=== PATIENT | female | born 1955 | race Asian ===

== ENCOUNTER 2017-05-03 05:56 | Inpatient (IN) | payer BC ==
--- NOTE | 2017-04-30 11:40 | HP ---
Admitting History and Physical - Primary Care Physician PCP: Ron Mckeon - Admission Chief Complaint: left breast cancer History of Present Illness: Patient is a 61 yo female s/p neoadjuvant chemo for a left invasive ductal ca ( 10/2016) ER and HI positive, Her 2 negative and positive axillary lymph node. 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 Patient is now presenting for a left MRM with reconstruction. History Source: Patient Limitations to Obtaining History: No Limitations - Past Medical History Cardiovascular: Yes: HTN Endocrine: Yes: Diabetes Mellitus - Smoking History Smoking history: Never smoked Have you smoked in the past 12 months: No - Alcohol/Substance Use Hx Alcohol Use: No Home Medications - Allergies Allergies/Adverse Reactions: Allergies Allergy/AdvReac Type Severity Reaction Status Date / Time No Known Allergies Allergy Unverified 08/19/13 11:37 - Home Medications Home Medications: Ambulatory Orders Aspirin [Aspir-Low] 81 mg PO DAILY 08/19/13 Calcium (Oyster Shell) [Elemental Calcium [Nf]] 600 mg PO BID tablet 08/19/13 Multivitamin [Multivitamins] 1 each PO DAILY tablet 08/19/13 Family Disease History - Family Disease History Family Disease History: CA: Brother (liver cancer was ETOH related) Other Family History: maternal cousin-ovarian cancer Review of Systems - Review of Systems Cardiovascular: reports: No Symptoms Respiratory: reports: No Symptoms Physical Examination Constitutional: Yes: Well Nourished, Calm Breast(s): Yes: Other (Patient has a B-cup breast without skin changes or nipple discharge. Left breast mass is softer after chemo and area of thickening at 12 oclock is still present. No palpable adenopathy is noted.) Assessment/Plan Assessment Left breast cancer with mets to axillary lymph nodes. Plan Left MRM with reconstruction
[2017-04-30 15:06] VITALS: BMI 25.7
[2017-05-03] MEDS ORDERED: DEXAMETHASONE SOD PHOSPHATE/PF 10 MG/ML SDV ONE (06:47)
[2017-05-03] MEDS ORDERED: MIDAZOLAM HCL 2 MG/2 ML SINGLE DOSE VIAL ONE ×3 (06:47→07:32)
[2017-05-03] MEDS ORDERED: BUPIVACAINE HCL/PF (5 MG/ML) 30 ML VIAL IJ ONE (06:47)
[2017-05-03] MEDS ORDERED: ceFAZolin SODIUM 1 GM VIAL ONE ×2 (07:14→08:30)
[2017-05-03] MEDS ORDERED: GENTAMICIN SO4 80 MG/2 ML VIAL ONE (07:15)
[2017-05-03] MEDS ORDERED: SUCCINYLCHOLINE CHLORIDE 200 MG/10 ML VIAL ONE (07:32)
[2017-05-03] MEDS ORDERED: ROCURONIUM BROMIDE 50 MG/5 ML VIAL ONE (07:32)
[2017-05-03] MEDS ORDERED: PROPOFOL 20 ML ONE ×2 (07:32)
[2017-05-03] MEDS ORDERED: LIDOCAINE HCL/PF 2% SDV 5ML VIAL ONE (07:34)
[2017-05-03] MEDS ORDERED: ONDANSETRON 4 MG/2 ML VIAL ONE (07:35)
[2017-05-03] MEDS ORDERED: DEXAMETHASONE SOD PHOSPHATE 4 MG/1 ML VIAL ONE (07:35)
[2017-05-03] MEDS ORDERED: ONDANSETRON 4 MG/2 ML VIAL IVPUSH PRN (10:05)
[2017-05-03] MEDS ORDERED: ONDANSETRON 4 MG/2 ML VIAL IVPB PRN (10:05)
[2017-05-03] MEDS ORDERED: ZOLPIDEM TARTRATE 5 MG TABLET PO PRN (10:05)
[2017-05-03] MEDS ORDERED: ACETAMINOPHEN 325 MG TABLET (FP) PO PRN (10:05)
[2017-05-03] MEDS ORDERED: oxyCODONE HCL 5 MG TABLET PO PRN ×2 (10:07→10:08)
[2017-05-03] MEDS ORDERED: DEXTROSE 5%-0.45% SALINE 1,000 ML IV SCH (10:15)
[2017-05-03] MEDS ORDERED: LACTATED RINGERS SOLUTION 1,000 ML IV SCH ×2 (10:15→11:15)
[2017-05-03] MEDS ORDERED: NEOSTIGMINE METHYLSULFATE 0.5 MG/ML - 10 ML MDV ONE (10:33)
[2017-05-03] MEDS ORDERED: GLYCOPYRROLATE 0.2 MG/1 ML VIAL ONE (10:33)
[2017-05-03] MEDS ORDERED: KETOROLAC TROMETHAMINE 30 MG/1 ML VIAL ONE (10:34)
--- NOTE | 2017-05-03 11:03 | OP ---
DATE OF OPERATION: 05/03/2017 PREOPERATIVE DIAGNOSIS: Left breast cancer, overlapping regions, with positive axillary lymph nodes. POSTOPERATIVE DIAGNOSIS: Left breast cancer, overlapping regions, with positive axillary lymph nodes. PROCEDURE PERFORMED: Left breast modified radical mastectomy with baker apprentice reconstruction and AlloDerm. PRIMARY SURGEON: Jona Arteaga MD POWER SYSTEMS ENGINEER: MICHEAL Miranda Primary surgeon for the baker apprentice reconstruction with AlloDerm is Dr. Jona Menendez, with his elementary assistant principal MICHEAL Sellers. ANESTHESIA: General endotracheal anesthesia. COMPLICATIONS: There were no complications. INDICATIONS: Briefly, the patient is a 61-year-old , postmenopausal female of [place] descent. No family history of breast cancer, but has a maternal cousin who had ovarian cancer in her 40s. The patient noticed a left breast mass and underwent mammography and ultrasound in October 2016, showing a 5.3-cm mass in the left breast on mammography, measuring about 4.8 cm on ultrasound. She had left axillary adenopathy and underwent biopsies of the lymph node as well as the breast mass, which came back positive for cancer. This was an infiltrating ductal cancer, ER-NC positive, HER-II/ROXANA negative, with a high Ki-67. MRI showed about a 6.1-cm mass in the left breast with the obviously positive lymph nodes. She underwent neoadjuvant chemotherapy and had a repeat MRI showing some decrease in the size of the cancer, but still with noticeable adenopathy. The patient was advised to undergo a modified radical mastectomy and was seen by Plastic Surgery preoperatively. She opted to undergo an baker apprentice reconstruction, since she will need post-mastectomy radiation. DESCRIPTION OF PROCEDURE: The patient was brought in for the procedure on May 03, 2017. She was marked preoperatively by the plastic surgeon, signed informed consents, and site verification was made. She was brought into the operating room and laid on the OR table in the supine position. Venodynes were placed on the lower extremities. She received 1 g of Ancef prior to incision. Both breasts were sterilely prepped and draped in the usual fashion. A skin-sparing elliptical incision was made, encompassing the nipple-areolar complex. Skin flaps were raised superiorly to the level of the clavicle, medially to the level of the sternum, laterally to the level of the latissimus, and inferiorly below the level of the inframammary fold. The breast was taken off of the pectoralis major muscle from medial to lateral. The axillary dissection was kept on block with the mastectomy specimen. Level I and level II axillary lymph node dissection was undertaken, using the axillary vein as the superior border of the dissection, the latissimus as the lateral border, the pectoralis minor as the medial border. All the lymph nodes were completely cleared from this triangle, sparing the long thoracic and thoracodorsal nerves, which were identified and spared throughout their entire courses. The intercostal brachial nerve was sacrificed. The specimen was then x-rayed in Radiology and showed removal of the 2 clips in question. It was oriented with a long lateral and short superior suture, and placed in formalin, to be sent to Pathology. Some high level II lymph nodes were taken and sent separately as "left axillary high level II lymph nodes." A separate anterior margin was also taken with a suture marking the biopsy cavity side. It should be noted that a small amount of muscle was removed on the posterior end of the mastectomy, where it was felt that the cancer may be penetrating through the muscle. Hemostasis was achieved and the wound was copiously irrigated. At this point Dr. Menendez became the primary surgeon to perform the baker apprentice with AlloDerm. Estimated blood loss at this point in the case was about 50 mL. She was hemodynamically stable throughout. The patient will have drains placed by Plastic Surgery at the time of the baker apprentice reconstruction. She did have a pectoral nerve block prior to going to the operating room, for postoperative pain control, but will also have a ED TECH for postoperative pain control. She will be recovered and admitted postoperatively for pain management and wound management. JONA ARTEAGA M.D. [id number]
[2017-05-03] MEDS ORDERED: diazePAM 2 MG TABLET PO PRN (11:09)
[2017-05-03] MEDS ORDERED: ACETAMINOPHEN 1000 MG/100 ML VIAL (NON FORMULARY) IVPB ONE (11:09)
[2017-05-03] MEDS ORDERED: traMADol HCL 50 MG TABLET PO PRN (11:09)
[2017-05-03] MEDS ORDERED: traMADol HCL 50 MG TABLET PO ONE (12:03)
[2017-05-03] MEDS ORDERED: ACETAMINOPHEN 650 MG/20.3 ML ORAL SOLUTION (CUPS) PO ONE (12:03)
--- NOTE | 2017-05-03 13:32 | OP ---
DATE OF OPERATION: 05/03/2017 SURGEON: Jona Menendez MD [employer] MANAGER: Verito Pastor PA-C PREOPERATIVE DIAGNOSIS: Left chest wall deformity status post left modified radical mastectomy. POSTOPERATIVE DIAGNOSIS: Left chest wall deformity status post left modified radical mastectomy. OPERATIVE PROCEDURE: 1. Immediate left breast reconstruction utilizing immediate insertion of tissue school adjustment counselor. 2. Insertion of acellular dermal matrix AlloDerm for breast reconstruction. 3. SPY intraoperative angiogram x2. OPERATIVE INDICATION: Patient is a young woman who was brought to the operating room by Dr. Jona Mckeon for left breast mastectomy for cancer. The patient had just finished her neoadjuvant chemotherapy and is now ready for mastectomy. The risks and benefits of surgical versus nonsurgical alternatives, as well as the material complications of the procedure, were described to the patient on multiple occasions preoperatively. She agreed to the planned procedure. The patient was marked in the standing position preoperatively in the holding area with Dr. Mckeon for outline of the procedure and scar deformity. All questions were asked and answered. OPERATIVE PROCEDURE IN DETAIL: Patient was taken to the operating room and after induction of general anesthesia in the supine position, both arms were extended and padded. Venodyne boots were placed, and attention was turned to the left chest wall. The markings for the mastectomy in modified radical fashion were outlined again with Dr. Mckeon, and then, he performed the mastectomy which will be dictated under a separate cover. Upon completion of the mastectomy of the left breast, the SPY intraoperative angiogram was brought into the field, and an intraoperative SPY angiogram was performed on the left chest wall. Blood flow to the majority of the flaps was good. The skin edges were trimmed in the usual fashion. Attention was then turned to the retropectoral area. The pectoralis major muscle was elevated superiorly from the second rib, medially to the sternal fibers, and down to the inframammary fold, elevating the origin of the pectoralis major muscle along the medial border of the breast. After elevation, hemostasis was meticulously obtained throughout the pocket including the axilla which contained a complete axillary dissection. At this point, a tissue school adjustment counselor of Allergan style 133MV 400 mL was prepared on the back table in the usual fashion and brought into the field. This was placed into the retropectoral position, and a Contour AlloDerm perforated, medium size was placed over the lower pole of the breast. This was sutured into position using 3-0 Vicryl sutures in interrupted tacking fashion along the pectoralis border and down to the inframammary fold. When the entire tissue school adjustment counselor was covered, it was filled through a sterile closed system, injecting 180 mL of sterile saline into the tissue school adjustment counselor. At this point, copious irrigation again was performed. Two 15 John drains were brought out through separate stab wounds laterally, and then, the skin and subcutaneous tissue were advanced and closed upon itself. Good shape and contour were seen. The skin flaps appeared viable on SPY intraoperative angiogram, and the breast was dressed with Steri-Strips and a compressive dressing and a Surgi-Bra. She tolerated the procedure well. JONA MENENDEZ M.D. [id number]
[2017-05-03] MEDS: metFORMIN HCL 500 MG TABLET (FP) PO SCH (16:18)
[2017-05-03] MEDS: CEFAZOLIN 1 GM/D5W 50 ML IVPB SCH ×2 (16:18→21:44)
[2017-05-03] MEDS: diazePAM 2 MG TABLET PO SCH ×2 (16:18→16:32)
[2017-05-03] MEDS: INSULIN DETEMIR 100 UNITS/ML MDV SQ SCH (22:30)
[2017-05-04] MEDS: ACETAMINOPHEN 325 MG TABLET (FP) PO SCH ×5 (01:46→23:22)
[2017-05-04] MEDS: traMADol HCL 50 MG TABLET PO SCH ×4 (01:47→23:22)
[2017-05-04] MEDS: diazePAM 2 MG TABLET PO SCH ×4 (01:48→23:55)
[2017-05-04] MEDS: CEFAZOLIN 1 GM/D5W 50 ML IVPB SCH ×4 (02:33→20:45)
[2017-05-04] MEDS: INSULIN REGULAR HUMAN 100 UNITS/ML *VIAL SQ SCH (06:41)
[2017-05-04] MEDS: metFORMIN HCL 500 MG TABLET (FP) PO SCH ×2 (06:41→17:13)
[2017-05-04 08:15] LABS: MCH 27.8 pg (25.7-33.7); MCHC 32.5 g/dl (32.0-36.0); MEAN CELL VOLUME 85.4 fl (80-96); MEAN PLT VOLUME 7.9 fl (7.5-11.1); PLATELET COUNT 258 K/MM3 (134-434); RDW 13.3 % (11.6-15.6); WHITE BLOOD COUNT 13.7 K/mm3 (4.0-10.8)
--- NOTE | 2017-05-04 09:13 | PN ---
Progress Note (short form) - Note Progress Note: Anesthesia postop note. S/P left breast radical mastectomy and reconstruction. Pat seen and examined. VSS. pain well controlled. Pat had some sore throat yesterday post op, improved today. Pat expressed concern and unsatisfied with not being aware of the plan of care in the preop stage. I addressed her questions and concerns , patient was reassured and satisfied. Ms Moya PA was present in the room.
--- NOTE | 2017-05-04 09:25 | PN ---
Progress Note, Physician Chief Complaint: Left breast cancer S/P left modified radical mastectomy with rn advanced and alloderm History of Present Illness: patient is eating , pain controlled with Ultram and tylenol, OOB to bathroom - Current Medication List Current Medications: Active Medications Acetaminophen (Tylenol -) 650 mg PO Q6H [facility] Last Admin: 05/04/17 06:35 Dose: Not Given Acetaminophen (Tylenol -) 650 mg PO Q4H PRN PRN Reason: FEVER Amlodipine Besylate (Norvasc -) 5 mg PO DAILY [facility] Diazepam (Valium -) 2 mg PO Q8H [facility] Last Admin: 05/04/17 01:48 Dose: Not Given Fentanyl (Sublimaze Injection -) 50 mcg IVPUSH [id number] PRN PRN Reason: PAIN Stop: 05/06/17 10:06 Heparin Sodium (Porcine) (Heparin -) 5,000 unit SQ BID [facility] Cefazolin Sodium (Ancef 1 Gm Premixed Ivpb -) 50 mls @ 100 mls/hr IVPB Q6H-IV [facility] Stop: 05/10/17 15:44 Last Admin: 05/04/17 02:33 Dose: 100 mls/hr Dextrose/Sodium Chloride (D5-1/2ns -) 1,000 mls @ 100 mls/hr IV ASDIR [facility] Insulin Detemir (Levemir Vial) 10 units SQ HS [facility] Last Admin: 05/03/17 22:30 Dose: 10 units Insulin Human Regular (Novolin R Vial *For Ivpush Or Iv Drip Only*) 8 units SQ AM [facility] Last Admin: 05/04/17 06:41 Dose: 8 units Losartan Potassium (Cozaar -) 100 mg PO DAILY [facility] Metformin HCl (Glucophage -) 1,000 mg PO BIDI [facility] Last Admin: 05/04/17 06:41 Dose: 1,000 mg Ondansetron HCl (Zofran Injection) 4 mg IVPB Q6H PRN PRN Reason: NAUSEA AND/OR VOMITING Oxycodone HCl (Roxicodone -) 5 mg PO Q4H PRN PRN Reason: PAIN Oxycodone HCl (Roxicodone -) 10 mg PO Q4H PRN PRN Reason: PAIN Tramadol HCl (Ultram -) 50 mg PO Q6H [facility] Last Admin: 06/30/17 06:35 Dose: Not Given Zolpidem Tartrate (Ambien -) 5 mg PO HS PRN PRN Reason: Insomnia - Objective Vital Signs: Vital Signs Temperature 98.1 F 05/04/17 06:00 Pulse Rate 82 05/04/17 06:00 Respiratory Rate 18 05/04/17 09:00 Blood Pressure 121/58 05/04/17 06:00 O2 Sat by Pulse Oximetry (%) 100 05/04/17 09:00 Constitutional: Yes: Well Nourished, No Distress Breast(s): Yes: Other (Left flap viable no echymosis incision intact steristrips in place patito drains funtioning) Labs: CBC, BMP 05/04/17 07:30 Problem List - Problems (1) Breast cancer, left Code(s): C50.912 - MALIGNANT NEOPLASM OF UNSPECIFIED SITE OF LEFT FEMALE BREAST Qualifiers: Breast location: unspecified site of breast Patient sex: female Assessment/Plan continue IV antibiotics continue pain medication OOB spirometry SCD prepare for discharge tomorrow
[2017-05-04] MEDS: HEPARIN NA (PORCINE) 5,000 UNITS/ML 1ML VIAL SQ SCH ×2 (09:58→21:22)
[2017-05-04] MEDS: amLODIPine BESYLATE 5 MG TABLET (FP) PO SCH (09:58)
[2017-05-04] MEDS: LOSARTAN POTASSIUM 50 MG TABLET (FP) PO SCH (09:58)
[2017-05-04] MEDS: INSULIN DETEMIR 100 UNITS/ML MDV SQ SCH (21:30)
[2017-05-05] MEDS: CEFAZOLIN 1 GM/D5W 50 ML IVPB SCH ×2 (03:24→09:31)
[2017-05-05 06:30] VITALS: BP 133/73; PULSE 72; TEMP 98.6
[2017-05-05] MEDS ORDERED: INSULIN (NOVOLOG) ASPART 100 UNITS/ML 10ML VIAL ONE (06:44)
[2017-05-05] MEDS: ACETAMINOPHEN 325 MG TABLET (FP) PO SCH (06:50)
[2017-05-05] MEDS: traMADol HCL 50 MG TABLET PO SCH (06:51)
[2017-05-05] MEDS: metFORMIN HCL 500 MG TABLET (FP) PO SCH (06:51)
[2017-05-05] MEDS: INSULIN REGULAR HUMAN 100 UNITS/ML *VIAL SQ SCH (06:51)
[2017-05-05] MEDS: diazePAM 2 MG TABLET PO SCH (08:45)
[2017-05-05] MEDS: HEPARIN NA (PORCINE) 5,000 UNITS/ML 1ML VIAL SQ SCH (09:58)
[2017-05-05] MEDS: LOSARTAN POTASSIUM 50 MG TABLET (FP) PO SCH (09:58)
[2017-05-05] MEDS: amLODIPine BESYLATE 5 MG TABLET (FP) PO SCH (09:58)
--- NOTE | 2017-05-05 10:49 | DS ---
Physical Examination Vital Signs: Vital Signs Temperature 98.6 F 05/05/17 06:00 Pulse Rate 72 05/05/17 06:00 Respiratory Rate 18 05/05/17 06:00 Blood Pressure 133/73 05/05/17 06:00 O2 Sat by Pulse Oximetry (%) 98 05/05/17 06:00 Constitutional: Yes: Well Nourished, No Distress Wound/Incision: Yes: Dressing Dry and Intact (Left chest incision covered with steri strips. Skin flaps viable and warm. JPs functioning, serosanguineous effluent.) Labs: CBC, BMP 05/04/17 07:30 Discharge Summary Reason For Visit: LEFT BREAST CA Current Active Problems Breast cancer, left (Acute) Condition: Good - Instructions Diet, Activity, Other Instructions: Post Operative Instructions - [facility] We hope your recovery will be uneventful. For those of you who have been given general anesthesia, there is a possibility you might have some lightheadedness and possibly nausea. It is important that each patient, especially those who have had general anesthesia, follow these instructions, please: 1. Do NOT operate a motor vehicle for 24 hours. 2. Do NOT drink any alcoholic beverages for 24 hours. 3. Do NOT take any sedatives, narcotics, or tranquilizers for 24 hours unless specifically ordered by your surgeon. 4. Do NOT undertake any strenuous exercise or outside activity for 24 hours unless specifically permitted by your surgeon. 5. Eat light foods that are easy to digest. If you have any problems with nausea and vomiting, lie down and rest. If it continues, call your surgeon. 6. Call your surgeon AT ONCE if you have problems with: a. Bleeding b. Urinating c. Excessive pain or drainage d. Numbness If any problems occur, call your physician first. If you cannot reach him/her, call the Ambulatory Surgery Unit at [phone], or the Emergency Room at . Follow up with Drs. Mckeon / Tessa in 7 days. Medication: Vicodin E-S OR Percocet 1-2 tablets every 4-6 hrs as needed for 5-7 days. Wound Care: Keep wound dry and clean for 48 hours. You may remove the dressing after 48 hours and may shower. Keep steri-strips in place until follow-up appointment No heavy lifting or strenuous activities. BREAST SURGERY INSTRUCTIONS Ron Mckeon M.D., FACS Chito Zarate M.D., FACS Jane Mccracken M.D., FACS 1. Please call the office at to make a follow up appointment with your surgeon. This number can be also used for any urgent issues you may have. 2. Call us immediately if any of the following occur: *Bleeding from the incision or drain site (a small amount is normal) *Fever or chills *Redness and worsening tenderness around the surgical site *Drainage of pus or fluid from the incision or drain site 3. You may change the surgical dressing two (2) days after your surgery, and may shower then. If you have drains, you may shower after they have been removed, until then take a sponge bath. 4. It is normal for there to be some bruising and tenderness around the surgical site, and the breast may also be firm in this area. 5. Please wear a comfortable bra (sports or surgical bra) all day and all night until your first follow-up visit with your surgeon. 6. The pain medicine you have been prescribed may make you constipated; make sure you drink plenty of water. You may use an over the counter laxative if needed. 7. You may resume your normal diet after surgery, although you may want to avoid rich foods for the first twenty-four (24) hours after surgery. Alcoholic drinks should be avoided while taking the prescribed pain medicine. 8. You may resume normal activities as long as there is no discomfort, but do not do upper body exercises until after your follow-up appointment. Do not lift anything heavier than a large phone book. You may resume driving once you have stopped taking the prescribed pain medicine and feel comfortable doing arm movements.WEAR BRA,EMPTY LENA DRAINS TWICE DAILY AND RECORD,NO SHOWER Referrals: Ron Mckeon MD [Staff Physician] - Nawaf eMnendez MD [Staff Physician] - - Home Medications Comprehensive Discharge Medication List: Ambulatory Orders Amlodipine Besylate 5 mg PO DAILY 04/30/17 Insulin Regular [Novolin R Vial -] 8 unit SQ DAILY 04/30/17 Losartan Potassium 100 mg PO DAILY 04/30/17 Cefadroxil 500 mg PO BID #20 capsule 05/04/17 Tramadol HCl [Ultram] 50 mg PO QID PRN #30 tablet MDD 6 05/04/17
--- NOTE | 2017-05-09 13:44 | PATH ---
Surgical Pathology Report Patient Name: NEEMA BRNUO Med. Rec. #: [id number] /Age/Gender: 1955 (Age: 61) / F Account: [id number] Location: [facility] Taken: 05/03/2017 Received: 05/03/2017 Reported: 05/09/2017 Physicians: Ron Mckeon M.D. Specimen(s) Received A: LEFT BREAST WITH LYMPH NODES B: HIGH LEVEL 2 LYMPH NODES LEFT AXILLA C: LEFT BREAST ANTERIOR MARGIN Clinical History Invasive Ca, Status post neoadjuvant chemotherapy with known positive lymph nodes Final Diagnosis A. BREAST AND AXILLARY LYMPH NODES, LEFT, MODIFIED RADICAL MASTECTOMY: INVASIVE DUCTAL CARCINOMA, MODERATELY DIFFERENTIATED (TUBULE SCORE: 3/3, NUCLEAR GRADE: 2/3, MITOTIC SCORE: 2/3; TOTAL ADALBERTO SCORE: 7/9), MEASURING 4.3 CM IN GREATEST DIMENSION (GROSS MEASUREMENT) AND SPANNING THE RETROAREOLAR REGION, UPPER INNER QUADRANT (UIQ) AND UPPER OUTER QUADRANT (UOQ). (SEE NOTE) TWO ADDITIONAL SATELLITE TUMOR NODULES, COMPRISED OF INVASIVE DUCTAL CARCINOMA, POORLY DIFFERENTIATED (TUBULE SCORE: 3/3, NUCLEAR GRADE: 3/3, MITOTIC SCORE: 3/3; TOTAL ADALBERTO SCORE: 9/9) PRESENT IN THE UOQ AND MEASURING 1.4 CM AND 0.6 CM IN GREATEST DIMENSION, MICROSCOPICALLY: THE LARGER SATELLITE TUMOR NODULE IS PRESENT POSTERIOR TO THE MAIN TUMOR MASS AND INVADES SKELETAL MUSCLE AT THE DEEP ASPECT. THE SMALLER SATELLITE NODULE INVOLVES DEEP DERMIS OF SKIN. MINIMAL (< 5%) TREATMENT-RELATED CHANGES ARE PRESENT. DUCTAL CARCINOMA IN SITU (DCIS), SOLID AND CRIBRIFORM TYPE, INTERMEDIATE NUCLEAR GRADE IS PRESENT ADMIXED WITH THE FOCI OF INVASIVE CARCINOMA A MINOR COMPONENT. DCIS INVOLVES LARGE LACTIFEROUS DUCT OF NIPPLE. LYMPHOVASCULAR INVASION IS PRESENT. INVASIVE CARCINOMA (POSTERIOR SATELLITE TUMOR NODULE) IS AT 1 MM FROM THE CLOSEST (DEEP) MARGIN. METASTATIC CARCINOMA INVOLVING FIVE OF NINE LYMPH NODES (5/9): METASTATIC CARCINOMA ALMOST COMPLETELY REPLACES MOST OF THE INVOLVED LYMPH NODES WITH THE LARGEST FOCUS OF METASTATIC CARCINOMA MEASURING 1.5 CM IN GREATEST DIMENSION (MACROMETASTASIS). EXTRANODAL EXTENSION IS PRESENT. PATHOLOGIC STAGE (ypTNM): ypT2 ypN2a. SEE ALSO INVASIVE CARCINOMA CASE SUMMARY BELOW. Note: The carcinoma is positive for E-Cadherin (performed at [facility]), which supports ductal phenotype. B. HIGH LEVEL II LYMPH NODES, LEFT AXILLA, EXCISION: METASTATIC CARCINOMA INVOLVING ONE OF SIX LYMPH NODES (1/6): THE FOCUS OF METASTATIC CARCINOMA MEASURES 6 MM IN GREATEST DIMENSION (MACROMETASTASIS). NO EXTRANODAL EXTENSION IS PRESENT. C. ANTERIOR MARGIN, LEFT, EXCISION: BENIGN FIBROADIPOSE TISSUE. Comments Breast Invasive Carcinoma: Surgical Pathology Cancer Case Summary Based on AJCC/UICC TNM, 7th edition Procedure _X_ Total mastectomy (including nipple and skin) Lymph Node Sampling _X_ Axillary dissection (partial or complete dissection) Specimen Laterality _X_ Left Tumor Size: Size of Largest Invasive Carcinoma: 4.3 cm Tumor Focality _X_ Multiple foci of invasive carcinoma Number of foci: 3 Sizes of individual foci: 4.3 cm, 1.4 cm, 0.6 cm Macroscopic and Microscopic Extent of Tumor Skin _X_ Invasive carcinoma directly invades into the dermis or epidermis without skin ulceration Nipple _X_ DCIS does not involve the nipple epidermis Skeletal Muscle _X_ Carcinoma invades skeletal muscle Ductal Carcinoma In Situ (DCIS) _X_ DCIS is present _X_ as a minor component (< 25% of tumor) Histologic Type of Invasive Carcinoma : _X_ Invasive carcinoma of no special type (ductal, not otherwise specified) Histologic Grade: (Adalberto Histologic Score) Tubular Differentiation _X_ Score 3 Nuclear Pleomorphism _X_ Score 2-3 Mitotic Rate _X_ Score 2-3 Overall Grade _X_ Grade 2: scores of 6 or 7 (moderately differentiated) to grade 3: scores of 8 or 9 (poorly differentiated) Margins _X_ Margins uninvolved by invasive carcinoma Distance from closest margin: 1 mm from deep margin _X_ Margins uninvolved by DCIS Distance from closest margin: 1.1 cm from anterior margin Lymph-Vascular Invasion _X_ Present Lymph Nodes Total number of lymph nodes examined (sentinel and nonsentinel): 15 Number of sentinel lymph nodes examined: 0 Number of lymph nodes with macrometastases (> 2 mm): 5 Number of lymph nodes with micrometastases (>0.2 mm to 2 mm and/or >200cells):1 Number of lymph nodes with isolated tumor cells (=0.2 mm and =200 cells): 0 Size of largest metastatic deposit: 1.5 cm Extranodal Extension _X_ Present Pathologic Staging (pTNM) Primary Tumor (Invasive Carcinoma): ypT2 Regional Lymph Nodes (pN): ypN2a Biomarker Studies Results of ER and MO studies performed on this specimen (block A4) at [facility] are as follows: ER (clone [id number] mouse monoclonal antibody by [employer]): 100 % nuclear staining with strong intensity (Positive). MO (clone16 mouse monoclonal antibody by [employer]): 1-2 % nuclear staining with moderate intensity (Positive). Results of Her2 (IHC) & Ki-67 studies performed on this specimen (block A4) at [place], [place] ( [id number]) are as follows: Her2 IHC (EP3 from [employer], formerly known as [id number], using [employer] Refine detection kit): 0 (Negative). Ki67: ~20% (Intermediate). ER, MO, HER2 & [id number] are being performed on one satellite tumor nodule (poorly differentiated invasive ductal carcinoma) and the results will be reported separately in an addendum. Positive and negative controls (internal if applicable) show appropriate results. Formalin fixation and cold ischemic times are within current ASCO/CAP recommendations for ER, MO and Her2 testing. Electronically Signed Carlotta Newell M.D. Gross Description A. Received in formalin, labeled "left breast with axillary lymph nodes," is a 724 gram, 19.0 x 15.0 x 3.2 cm. right mastectomy specimen with a short suture marking the superior aspect and a long suture marking the lateral aspect of the specimen, per the surgeon. The specimen displays an attached 13.0 x 10.5 x 2.5 cm portion of axillary fat. The anterior surface displays a 7.0 x 3.2 cm argueta, elliptical portion of skin with a 1.6 cm in diameter nipple. The deep margin is inked black and the anterior soft tissue margin is inked blue. The specimen is serially sectioned from medial to lateral. Sectioning reveals a 4.3 x 3.5 x 2.8 cm argueta, firm mass in the retroareolar region, spanning the upper inner quadrant (UIQ) and upper outer quadrant (UOQ). The mass is focally at 0.9 cm from the anterior soft tissue margin. There are 2 satellite nodules identified. The first satellite lesion measures 1.3 x 1.3 x 0.7 cm and abuts the deep margin in the UOQ. The lesion is at 1.5 cm posterior to the main mass. The second satellite lesion measures 0.8 x 0.8 x 0.6 cm and is at 0.1 cm from the skin. The lesion is at 0.8 cm anterior to the main mass, also in the UOQ. The remaining breast parenchyma displays multiple foci of unremarkable white fibrous tissue. Sectioning of the axillary fat reveals multiple argueta, irregular lymph nodes ranging from 0.4-2.3 cm in greatest dimension. Pasting Inspector sections are submitted in 35 cassettes as follows: 1-serially sectioned nipple; 2-subareolar shave; 3-5-mass; 6-mass with anterior soft tissue margin; 7-10-first satellite lesion with deep margin; 54-90-hfsfaz satellite lesion with skin; 13-uninvolved UOQ tissue; 14-15-lower outer quadrant; 16-uninvolved UIQ tissue; 17-18-lower inner quadrant; 19-uninvolved skin and anterior soft tissue margin; 20-uninvolved deep margin; 79-15-ztwtztes whole possible lymph nodes each; 23-25-one whole bisected lymph node each; 26-27-one whole bisected lymph node; 28-30-one whole trisected lymph node; 31-32-one whole quadrisected lymph node; 33-35-one whole serially sectioned lymph node. Time to formalin fixation: 18 minutes Total formalin fixation time: Approximately 32 hours. B. Received in formalin labeled "high level II nodes left axilla," a 5.0 x 3.5 x 1.7 cm aggregate of yellow, lobulated adipose tissue. Sectioning reveals multiple argueta, irregular, possible lymph nodes ranging from 0.4-2.0 cm in greatest dimension. The lymph nodes are submitted in 7 cassettes as follows: 1-2-one whole possible lymph node each; 3-5-one whole bisected possible lymph node each; 6-7-one whole bisected lymph node. C. Received in formalin labeled "anterior margin left," is a 3.3 x 2.0 x 0.8 cm irregular portion of fibroadipose tissue with a suture marking the biopsy cavity side, per the surgeon. The new margin is inked blue and the specimen is serially sectioned. The specimen is entirely and sequentially submitted in 3 cassettes. /05/03/2017 saudi05/03/2017
== END 2017-05-05 11:40 | disposition home or self-care (01) | DRG 580 ==
LOC: FM/S 05:56
PROVIDERS: ADMIT Surgery Surgical Oncology; ATTEND Surgery Surgical Oncology
PROC: 0HHU0NZ Insertion of Tissue Expander into Left Breast, Open Approach (ICD-10-PCS; 2017-05-03)
PROC: 0HTU0ZZ Resection of Left Breast, Open Approach (ICD-10-PCS; principal; 2017-05-03 08:41)
PROC: 07B60ZX Excision of Left Axillary Lymphatic, Open Approach, Diagnostic (ICD-10-PCS; 2017-05-03 08:41)
DX: C50.912 Malignant neoplasm of unspecified site of left female breast (principal); C77.3 Secondary and unspecified malignant neoplasm of axilla and upper limb lymph nodes; Z17.0 Estrogen receptor positive status [ER+]; J02.9 Acute pharyngitis, unspecified; M95.4 Acquired deformity of chest and rib; I10 Essential (primary) hypertension; E11.9 Type 2 diabetes mellitus without complications
CPT/HCPCS: 36415; 85027; 88305-TC; 88307-TC; 88309-TC; 94010; 94760; J1644

== ENCOUNTER 2020-04-28 08:58 | Day surgery (SDC) | payer BC ==
[2020-04-22 17:09] VITALS: BMI 25.2
[2020-04-28] MEDS: TROPICAMIDE 1% OPHTH SOLN 15 ML BOTTLE ONE ×3 (09:40→09:50)
[2020-04-28] MEDS: CYCLOPENTOLATE 2% OPHTH SOLN 2 ML BOTTLE ONE ×3 (09:40→09:50)
[2020-04-28] MEDS: PHENYLEPHRINE 2.5% OPHTH SOLN 15 ML BOTTLE ONE ×3 (09:40→09:50)
[2020-04-28] MEDS: CIPROFLOXACIN 0.3% EYE DROPS 5 ML BOTTLE ONE ×3 (09:40→09:50)
[2020-04-28] MEDS ORDERED: TETRACAINE 0.5% OPHTH SOLN 2 ML BOTTLE ONE (09:45)
[2020-04-28] MEDS ORDERED: NEO/POLYMYX B SULF/DEXAMETH OPHTHALMIC 5ML BOTTLE ONE (09:46)
[2020-04-28] MEDS ORDERED: BSS (NA/CA/MG/K) BALANCED SALT SOLUTION OPHTH SOLN 15 ML BOTTLE ONE (09:46)
[2020-04-28] MEDS ORDERED: CARBACHOL 0.01% INTRA-OCULAR 1.5 ML VIAL ONE (09:46)
[2020-04-28] MEDS ORDERED: MIDAZOLAM HCL 2 MG/2 ML SINGLE DOSE VIAL ONE (10:18)
[2020-04-28 11:49] VITALS: TEMP 98.4
[2020-04-28 11:52] VITALS: BP 145/82; PULSE 88
--- NOTE | 2020-04-29 13:37 | OP ---
DATE OF OPERATION: 04/28/2020 OPERATIVE PROCEDURE: Lens Phacoemulsification with Posterior Chamber Intraocular Lens Placement, Right Eye PREOPERATIVE DIAGNOSIS: Visually Significant Cataract of Right Eye POSTOPERATIVE DIAGNOSIS: Visually Significant Cataract of Right Eye SURGEON: Jose Luis Martinez M.D. ANESTHESIA: MAC PROCEDURE: The patient was brought to the operating room and placed under monitored anesthesia care by Anesthesia. A drop of Tetracaine was then placed over the right eye. The patient was then prepped and draped in the usual sterile manner. A speculum was then placed over the right eye. The eye was then well irrigated with copious amounts of BSS (balanced salt solution). The operating microscope was then moved into position. A paracentesis was performed using a 15 degree blade. At this point 0.5 mL of 1% preservative free-lidocaine was injected into the anterior chamber. Amvisc plus was then injected into the anterior chamber. A clear corneal incision was then formed using a 2.2 mm keratome. A capsulorrhexis was then performed in a continuous circular fashion beginning with a cystotome completed with an Utratas forceps. Hydrodissection was then performed using BSS on a cannula. The phaco probe was then introduced through the corneal wound and the cataract was removed using the phaco chop technique. Approximately 3 seconds of absolute phaco time was used. The remaining cortex was then removed using irrigation and aspiration with an I/A probe. The capsule was then filled with regular Amvisc and the capsule was noted to be intact. A previously selected foldable posterior chamber intraocular lens was then injected into the capsule through the corneal wound using a lens injector. It was then dialed into position using a Sinskey hook. The Amvisc was then removed using irrigation and aspiration. Miostat was then injected through the paracentesis to constrict the pupil. The paracentesis and corneal wound were then hydrated and noted to be water tight. A drop of Maxitrol was then placed over the eye. The speculum was removed and clear shield was taped over the eye. The patient tolerated the procedure well and there were no surgical complications. The patient was asked to follow up in my office the next day. JOSE LUIS MARTINEZ M.D. [id number]
== END 2020-04-28 11:35 | disposition home or self-care (01) ==
LOC: FASU 08:58
PROVIDERS: ATTEND Ophthalmology
PROC: 08RJ3JZ Replacement of Right Lens with Synthetic Substitute, Percutaneous Approach (ICD-10-PCS; principal; 2020-04-28 10:20)
DX: H26.8 Other specified cataract (principal)
CPT/HCPCS: 82962